=== PATIENT | male | born 1975 | race African-American/Black ===

== ENCOUNTER 2019-07-01 02:13 | Inpatient (IN) | payer OTHER ==
[~2019-07-01] VITALS: Ht 177.8 cm; Wt 74.4 kg
--- NOTE | ~2019-07-01 | HC ---
[facility] [place] [address] CONSULTATION Name: NEELAM ABBASI Room #: 452-P [facility] IN M.R.#: [id number] Admission: 07/01/19 Attend Phys: Ramy Blanco MD Discharge: Date of : 75 Report #: [id number] THIS REPORT FOR: cc: NO FAMILY PHYSICIAN or PCP NO FAMILY PHYSICIAN or PCP Molly Page MD ~ CC: Ramy Blanco NO PCP ORTHOPEDIC CONSULTATION NOTE REASON FOR CONSULTATION AND CHIEF COMPLAINT: Cellulitis, left hand, possible abscess. HISTORY OF PRESENT ILLNESS: The patient is a 44-year-old male who sustained an injection injury on the dorsum of his left hand on Saturday. He reports Saturday, it started becoming swollen and painful. He then presented to the Emergency Department early morning with increasing pain and swelling of the left hand. He reports the pain is worse when he uses his hand and is sharp in nature. PAST MEDICAL HISTORY: Negative. MEDICATIONS: None. ALLERGIES: None. SURGERIES: None. SOCIAL HISTORY: He is right-hand dominant, works rehabbing houses, uses methamphetamines and PCP and does smoke every day. REVIEW OF SYSTEMS: MUSCULOSKELETAL: Denies any other extremity injuries. NEUROLOGIC: Denies numbness or tingling. LABORATORY STUDIES: Done on 07/02/2019 show white blood cell count 5.3, hemoglobin 12.9, hematocrit 38.4, platelet count 195. Chemistry is grossly normal except for CRP quantitative is 125.9, which is significantly elevated. PHYSICAL EXAMINATION: GENERAL: The patient is alert and oriented, interacts appropriately. He is a well-developed, well-nourished male in no acute distress. He has normal mood and affect. He is lying in the hospital bed. VITAL SIGNS: Most recent vital signs show a temperature of 36.7, heart rate 78, respiratory rate 18, blood pressure 131/76, pulse oximetry is 99% on room air. EXTREMITIES: Examination of his right upper extremity, the skin is clean, dry [address] [address] CONSULTATION Name: NEELAM ABBASI Room #: 452-[facility] IN .R.#: [id number] Admission: 07/01/19 Attend Phys: Ramy Blanco MD Discharge: Date of : 75 Report #: [id number] and intact. Left upper extremity, the skin is clean, dry and intact with moderate diffuse edema, more so on the dorsal aspect of his hand with 2 small puncture wounds with a surrounding rim of erythema. He has moderate pain with passive flexion of the digits over the extensor tendons. He has a 2+ radial pulse, brisk capillary refill. Sensation is intact to light touch throughout. He has gross motor strength and stability. He has diffuse tenderness mostly localized to the dorsum of his hand over the area where there is a rim of erythema. Radiographs were reviewed and interpreted by myself. The report was reviewed as well. There is no bony abnormality. There is some mild soft tissue swelling dorsally. IMPRESSION AND PLAN: Left dorsal hand cellulitis, probable abscess after an injection apparently of IV drugs. I would recommend incision and debridement. The risks, benefits, alternatives and complications were discussed with the patient including but not limited to inability to resolve the infection necessitating more surgery, infection, damage to blood vessels or nerves or wound healing problems and stiffness. Informed consent was obtained. We will plan on performing this later today. By: [id number] Molyl Page MD /nt
--- NOTE | ~2019-07-01 | O ---
[facility] [address] OPERATIVE REPORT Name: NEELAM ABBASI Room #: 452-P [facility] IN M.R.#: [id number] Admission: 07/01/19 Attend Phys: Ramy Blanco MD Discharge: Date of : 75 Report #: [id number] THIS REPORT FOR: cc: NO FAMILY PHYSICIAN or PCP NO FAMILY PHYSICIAN or PCP Molly Page MD ~ CC: Ramy Blanco NO PCP PREOPERATIVE DIAGNOSIS: Left dorsal hand abscess. POSTOPERATIVE DIAGNOSIS: Left dorsal hand abscess. PROCEDURE PERFORMED: Left dorsal hand incision and debridement of subcutaneous tissue. SURGEON: Molly Page MD ANESTHESIA: General mask anesthesia. ESTIMATED BLOOD LOSS: Minimal. TOURNIQUET TIME: 6 minutes. COMPLICATIONS: None. CONDITION: Stable. DISPOSITION: Recovery room. SPECIMEN: Sent to microbiology. INDICATIONS: The patient is a 44-year-old male with the above-mentioned diagnosis. He elects for operative treatment. The risks, benefits, alternatives and complications were discussed including but not limited to inability to resolve the infection requiring more surgery, infection, wound healing problems. We discussed the possibility of requiring local wound care. Informed consent was obtained. The correct extremity was identified and labeled by myself after verbal confirmation of the patient as well as visual confirmation and signed informed consent. DESCRIPTION OF PROCEDURE: The patient was brought back to the operating room and placed on the operating table in a supine position. He had previously been on antibiotics. His immediate preop dose was held and he was given his normal dose at 2:00 p.m. after the end of the case. Left upper extremity was sterilely prepped and draped in the usual fashion. Final timeout was taken to verify correct patient, operative procedure, operative site, all concurred. [facility] [address] [place] [address] OPERATIVE REPORT Name: NEELAM ABBASI Room #: 452-P [facility] IN M.R.#: [id number] Admission: 07/01/19 Attend Phys: Ramy Blanco MD Discharge: Date of : 75 Report #: [id number] was elevated, exsanguinated well proximal to the wrist and the tourniquet inflated. Approximately 3 cm dorsal incision was made over the area of most erythema. Dissection was carried down through subcutaneous tissue with tenotomy scissors. Cloudy fluid was found, but no definite abscess. A significant search was undertaken for an abscess with tenotomy scissors. None was found. A rongeur was used to debride some unhealthy fat. The wound was then thoroughly irrigated with a liter of antibiotic saline. Leaving the wound open did not leave any tendons exposed and so the wound was left open in order to facilitate healing by secondary intention to decrease any risk of reinfection. The wound was dressed with sterile gauze. He was placed in a bulky dressing. All fingers were pink with brisk capillary refill at the conclusion of the case after deflation of tourniquet. All sponge and needle counts were correct. The patient was transferred to postoperative recovery room in stable condition. By: [id number] Molly Page MD /nt
[2019-07-01 02:15] VITALS: BP 132/72
[2019-07-01] MEDS ORDERED: NOHOMEMEDICATIONS (02:22)
[2019-07-01 03:00] LABS: ABSOLUTE NEUTROPHILS 5.9 thou/uL (1.4-8.2); BASOPHILS 0.4 % (0.0-2.0); EOSINOPHILS 1.2 % (0.0-3.0); HEMATOCRIT 36.7 % (42.0-52.0); HEMOGLOBIN 12.4 gm/dL (14.0-18.0); LYMPHOCYTES 12.2 % (24.0-44.0); MCH 30.3 pg (26.0-34.0); MCHC 33.8 g/dL (28.0-37.0); MCV 89.6 fL (80.0-100.0); MONOCYTES 8.7 % (1.0-8.0); PLATELET COUNT 185 thou/uL (150-400); POLYS 77.5 % (36.0-66.0); RDW 13.4 % (10.5-14.5); WBC 7.7 thou/uL (4.0-11.0)
[2019-07-01 03:04] LABS: CALCIUM 8.7 mg/dL (8.5-10.1); CREATININE 1.4 mg/dL (0.7-1.3); POTASSIUM 3.5 mmol/L (3.5-5.1)
[2019-07-01 03:10] LABS: ALBUMIN 3.3 g/dL (3.4-5.0); TOTAL BILIRUBIN 0.4 mg/dL (<0.1-1.0); TOTAL PROTEIN 7.7 g/dL (6.4-8.2)
[2019-07-01 03:23] LABS: URINE BILIRUBIN NEGATIVE (Negative); URINE BLOOD 1+ (Negative); URINE CLARITY CLEAR; URINE COLOR YELLOW; URINE GLUCOSE-RANDOM* NEGATIVE (Negative); URINE KETONES NEGATIVE (Negative); URINE LEUKOCYTES-REFLEX NEGATIVE (Negative); URINE NITRITE-REFLEX NEGATIVE (Negative); URINE PROTEIN (DIPSTICK) NEGATIVE (Negative); URINE SPECIFIC GRAVITY 1.025 (1.005-1.035)
[2019-07-01 03:34] LABS: AMP/METHAMP POSITIVE (Negative); BACTERIA-REFLEX 1-9 Few /HPF (None Seen); BARBITURATES Negative (Negative); BENZODIAZEPINES Negative (Negative); CASTS None Seen /LPF (None Seen); COCAINE Negative (Negative); CRYSTALS None Seen /LPF (None Seen); METHADONE Negative (Negative); MUCUS 0-3 Light strn/LPF (None Seen); OPIATES Negative (Negative); PCP POSITIVE (Negative); SQUAMOUS 0-3 Few /LPF (0-3); URINE RBC 3-10 Few /HPF (0-2); URINE WBC-REFLEX 0-5 Rare /HPF (0-5)
[2019-07-01 04:21] VITALS: BP 127/79
[2019-07-01 04:49] VITALS: BP 157/102
[2019-07-01 07:06] VITALS: BP 154/73
[2019-07-01 15:04] VITALS: BP 155/85
[2019-07-01 19:12] VITALS: BP 146/74
[2019-07-02 05:07] VITALS: BP 140/74
[2019-07-02 05:59] LABS: HEMATOCRIT 38.4 % (42.0-52.0); HEMOGLOBIN 12.9 gm/dL (14.0-18.0); MCH 30.4 pg (26.0-34.0); MCHC 33.5 g/dL (28.0-37.0); MCV 90.7 fL (80.0-100.0); RBC 4.24 mil/uL (4.50-6.00); RDW 13.6 % (10.5-14.5); WBC 5.3 thou/uL (4.0-11.0)
[2019-07-02 06:26] LABS: CALCIUM 8.6 mg/dL (8.5-10.1); CREATININE 1.1 mg/dL (0.7-1.3); POTASSIUM 4.3 mmol/L (3.5-5.1)
[2019-07-02 07:51] VITALS: BP 128/86
[2019-07-02 14:59] VITALS: BP 144/70
[2019-07-02 19:15] VITALS: BP 137/69
[2019-07-03] VITALS (8 sets, daily range): BP systolic 117–1334; BP diastolic 54–84
[2019-07-03] MEDS ORDERED: CLINDAMYCIN HC300 MG PO (15:12)
[2019-07-04 07:55] VITALS: BP 160/83
[2019-07-04 15:40] VITALS: BP 130/75
[2019-07-04 15:44] VITALS: BP 160/83
== END 2019-07-04 16:17 | disposition home or self-care (01) | DRG 581 ==
LOC: ER 02:13 → 4W 04:09 → EROBS 04:09 → 4W 04:37 → 4S 07-04 06:37
PROVIDERS: Emergency Medicine; Nurse Practitioner Family; ADMIT Hospitalist
PROC: 2W38X1Z Immobilization of Right Upper Extremity using Splint (ICD-10-PCS; principal; 2019-07-01)
PROC: 0JBK0ZZ Excision of Left Hand Subcutaneous Tissue and Fascia, Open Approach (ICD-10-PCS; principal; 2019-07-01)
DX: L03.114 Cellulitis of left upper limb (principal); F15.10 Other stimulant abuse, uncomplicated; F17.210 Nicotine dependence, cigarettes, uncomplicated; Z79.899 Other long term (current) drug therapy; Z20.828 Contact with and (suspected) exposure to other viral communicable diseases
CPT/HCPCS: 10040; 50010; 50101